=== PATIENT | female | born 1975 | race Caucasian/White ===

== ENCOUNTER 2020-03-21 09:13 | Emergency (ER) | payer SELFPAY ==
--- NOTE | 2020-03-21 09:57 | RADIOLOGY REPORT (SQ) ---
EXAM DESCRIPTION: CHEST SINGLE VIEW IMAGES COMPLETED DATE/TIME: 03/21/2020 9:48 am REASON FOR STUDY: cp COMPARISON: None. EXAM PARAMETERS: NUMBER OF VIEWS: One view. TECHNIQUE: Single frontal radiographic view of the chest acquired. RADIATION DOSE: NA LIMITATIONS: None. FINDINGS: LUNGS AND PLEURA: No opacities, masses or pneumothorax. No pleural effusion. MEDIASTINUM AND HILAR STRUCTURES: No masses. Contour normal. HEART AND VASCULAR STRUCTURES: Heart normal in size. Normal vasculature. BONES: No acute findings. HARDWARE: None in the chest. OTHER: No other significant finding. IMPRESSION: NO ACUTE RADIOGRAPHIC FINDING IN THE CHEST. TECHNICAL DOCUMENTATION: JOB ID: [id number] 2010 [employer]- All Rights Reserved Reading location - IP/workstation name: [email or web address]
[2020-03-21 10:14] LABS: ABSOLUTE EOSINOPHILS # (AUTO) 0.1 10^3/uL (0.0-0.6); ABSOLUTE LYMPHOCYTES (AUTO) 1.2 10^3/uL (0.5-4.7); ABSOLUTE MONOCYTES (AUTO) 0.4 10^3/uL (0.1-1.4); ABSOLUTE NEUT (AUTO) 9.1 10^3/uL (1.7-8.2); BASOPHILS % (AUTO) 0.2 % (0-2); HEMATOCRIT 41.6 % (36.0-47.0); HEMOGLOBIN 14.9 g/dL (12.0-15.5); LYMPHOCYTES % (AUTO) 10.8 % (13-45); MEAN CORPUSCULAR HEMOGLOBIN 33.2 pg (27.0-33.4); MEAN CORPUSCULAR HGB CONC 35.9 g/dL (32.0-36.0); MEAN CORPUSCULAR VOLUME 92 fl (80-97); MONOCYTES % (AUTO) 3.3 % (3-13); PLATELET COUNT 169 10^3/uL (150-450); RED CELL DISTRIBUTION WIDTH 12.6 % (11.5-14.0); SEGMENTED NEUTROPHILS % (AUTO) 84.7 % (42-78); TOTAL CELLS COUNTED % (AUTO) 100 %; WHITE BLOOD COUNT 10.8 10^3/uL (4.0-10.5)
--- NOTE | 2020-03-21 10:23 | ER Document Report ---
ED Cardiac - General Stated Complaint: CHEST PAIN Time Seen by Provider: 03/21/20 09:22 Notes: CHIEF COMPLAINT: Chest pain HPI: 44-year-old mildly obese female who smokes presenting to the emergency department for evaluation of chest pain under the left breast with some radiation into the left shoulder and arm today that started around 730. Patient describes it as a squeezing pressure sensation as if someone was sitting on her chest. Mild shortness of breath. No abdominal pain nausea vomiting. Has not had prior discomfort like this. No radiation into the neck or back. Patient did call EMS who gave the patient aspirin and also nitroglycerin spray and then put her on a nitroglycerin drip. Patient states all of her pain is gone at this time. Unknown family history per the patient ROS: See HPI - all other systems were reviewed and are otherwise negative Constitutional: no fever Eyes: no drainage, no blurred vision ENT: no runny nose, no sore throat Cardiovascular: + chest pain Resp: + SOB, no cough GI: no vomiting, no diarrhea, no abdominal pain : no dysuria Integumentary: no rash Allergy: no hives Musculoskeletal: no extremity pain or swelling Neurological: no numbness/tingling, no weakness MEDICATIONS: I agree with the patient medications as charted by the RN. ALLERGIES: I agree with the allergies as charted by the RN. PAST MEDICAL HISTORY/PAST SURGICAL HISTORY: Reviewed and agree as charted by RN. SOCIAL HISTORY: Reviewed and agree as charted by RN. FAMILY HISTORY: No significant familial comorbid conditions directly related to patient complaint EXAM: Reviewed vital signs as charted by RN. CONSTITUTIONAL: Alert and oriented and responds appropriately to questions. Well-appearing; well-nourished HEAD: Normocephalic; atraumatic EYES: PERRL; Conjunctivae clear, sclerae non-icteric ENT: normal nose; no rhinorrhea; moist mucous membranes; pharynx without lesions noted, no uvula edema or deviation, no tonsillar hypertrophy, phonation normal NECK: Supple without meningismus; non-tender; no cervical lymphadenopathy, no masses CARD: RRR; no murmurs, no clicks, no rubs, no gallops; symmetric distal pulses RESP: Normal chest excursion without splinting or tachypnea; breath sounds clear and equal bilaterally; no wheezes, no rhonchi, no rales, pulse oximetry 98% on room air not hypoxic ABD/GI: Mildly obese, normal bowel sounds; non-distended; soft, non-tender, no rebound, no guarding; no palpable organomegaly or masses. BACK: The back appears normal and is non-tender to palpation, there is no CVA tenderness EXT: Normal ROM in all joints; non-tender to palpation; no cyanosis, no effusions, no edema SKIN: Normal color for age and race; warm; dry; good turgor; no acute lesions noted NEURO: Moves all extremities equally; Motor and sensory function intact PSYCH: The patient's mood and manner are appropriate. Grooming and personal hygiene are appropriate. MDM: 44-year-old female mildly obese, smoker, no other known medical history presenting for evaluation of chest pain with some shortness of breath today. Was given aspirin and nitroglycerin by EMS with resolution of pain. Does not know whether the aspirin or the nitroglycerin made the pain go away. Patient currently pain-free. Her EKG is normal sinus rhythm with a ventricular rate of 72 VA 136 QT 400 QTC 438, normal EKG without other ectopy noted. Interpreted by emergency department physicians. Will obtain screening cardiac labs on the castillo ent, chest x-ray is without acute findings. If for set of cardiac labs are normal anticipate holding patient for second set. Patient nitroglycerin drip was turned off on my arrival. We will observe the patient for recurrent pain or issues - Related Data Allergies/Adverse Reactions: codeine Allergy (Verified 03/21/20 09:45) morphine Allergy (Verified 03/21/20 09:45) Penicillins Allergy (Verified 03/21/20 09:45) Past Medical History - Social History Smoking Status: Current Every Day Smoker Family History: Reviewed & Not Pertinent Physical Exam - Vital signs Vitals: Temp Pulse Resp BP Pulse Ox 97.8 F 87 18 160/100 H 98 03/21/20 09:14 03/21/20 09:14 03/21/20 09:14 03/21/20 09:14 03/21/20 09:14 Course - Re-evaluation Re-evalutation: 03/21/20 11:02 Notified by nursing the patient's troponin was elevated. discussed with Dr. Bynum who evaluated the patient. Will restart nitroglycerin drip. Give beta-neptali give Lovenox give Plavix. Have called [facility] transfer line awaiting callback from their barrel raiser helper. Have discussed this with the patient. I spoke with Dr. Sorto the barrel raiser helper on-call at [facility], we discussed the case and he recommends transfer of the patient for cardiac catheterization 03/21/20 11:[address] Macario Dey, [facility]. He accepts the patient to a floor bed and then they will take the patient to the Formula Room Worker. I discussed this with the p atient she will be n.p.o. - Vital Signs Vital signs: Temp Pulse Resp BP Pulse Ox 97.8 F 87 13 160/86 H 98 03/21/20 09:14 03/21/20 09:14 03/21/20 11:03 03/21/20 11:03 03/21/20 11:03 - Laboratory Result Diagrams: 03/21/20 09:51 03/21/20 09:51 Laboratory results interpreted by me: 03/21/20 03/21/20 09:51 09:51 WBC 10.8 H Lymph % (Auto) 10.8 L Absolute Neuts (auto) 9.1 H Seg Neutrophils % 84.7 H Creatinine 0.48 L Glucose 143 H Critical Care Note - Critical Care Note Total time excluding time spent on procedures (mins): 35 - Nstemi, heparin/NTG drips, multiple consultation calls Discharge - Discharge Clinical Impression: NSTEMI (non-ST elevated myocardial infarction) Condition: Stable Disposition: [facility]
[2020-03-21 10:28] LABS: ALBUMIN 4.2 g/dL (3.5-5.0); ALKALINE PHOSPHATASE 91 U/L (38-126); ANION GAP 9 (5-19); ASPARTATE AMINO TRANSFERASE 34 U/L (14-36); BILIRUBIN,DIRECT 0.2 mg/dL (0.0-0.4); BILIRUBIN,TOTAL 0.9 mg/dL (0.2-1.3); BLOOD UREA NITROGEN 20 mg/dL (7-20); CALCIUM 9.4 mg/dL (8.4-10.2); CARBON DIOXIDE 24 mmol/L (22-30); CHLORIDE 107 mmol/L (98-107); GLUCOSE 143 mg/dL (75-110); POTASSIUM 3.7 mmol/L (3.6-5.0); TOTAL PROTEIN 6.9 g/dL (6.3-8.2)
[2020-03-21] MEDS ORDERED: NITROGLYCERIN/D5W 50 MG/250 ML RTUINJ IV PRN (10:53)
[2020-03-21] MEDS ORDERED: CLOPIDOGREL BISULFATE 75 MG TABLET PO ONE (10:59)
[2020-03-21] MEDS ORDERED: ENOXAPARIN SODIUM INJ 100 MG/1 ML DISP.SYRIN SUBCUT SCH (11:00)
[2020-03-21] MEDS ORDERED: METOPROLOL TARTRATE 25 MG TABLET PO SCH (11:00)
[2020-03-21 11:12] LABS: PROTHROMBIN TIME 13.4 SEC (11.4-15.4)
--- NOTE | 2020-03-21 11:12 | ER Document Report ---
Doctor's Note Notes: 03/21/20 11:07 This is a 44-year-old female presenting by EMS with chest pain who I was asked to evaluate along with midlevel provider. Reports sudden onset of severe discomfort and right parasternal area radiating into the neck and shoulder while she was cooking in her kitchen this morning. She was somewhat short of breath with this. No nausea or vomiting. No syncope or presyncope. Patient has not seen a doctor in years and takes no medications. She is a cigarette smoker. She reports allergies to codeine, morphine and penicillin. No prior surgery. Patient has been told that she has had some transient elevation of blood pressure in the past but has never been diagnosed with hypertension. She is not diabetic and has no history of hyperlipidemia. There is no prior history of thromboembolic disease. Family history is unknown to this patient. Patient was started on IV nitroglycerin and given aspirin by EMS. She was pain- free on arrival here and is remained pain-free. She is hemodynamically stable. Normal sinus rhythm on monitor. Her chest is clear cardiac rhythm is regular at murmur gallop or rub she has no jugular venous distention and no peripheral edema. Her abdomen is soft and nontender she is awake alert and oriented appearing in no distress. Twelve-lead EKG shows normal sinus rhythm with no acute ST/T wave changes. Troponin is, however, elevated about 1.3. Patient appears to have acute coronary syndrome with acute non-STEMI. Findings were discussed with supervisory aide on-call, Dr. Sorto. We agreed that patient will remain on IV nitroglycerin and we are going to give her Lovenox and Plavix as well as beta-neptali. She is going to be transferred to [facility] for cardiac catheterization.
[2020-03-21 11:13] LABS: PARTIAL THROMBOPLASTIN TIME 24.5 SEC (23.5-35.8)
--- NOTE | 2020-03-21 12:43 | EKG REPORT ---
SEVERITY:- BORDERLINE ECG - SINUS RHYTHM NONSPECIFIC ST-T CHANGES- INFERIOR LEADS : Confirmed by: Justice Howell MD 21-Mar-2020 12:42:01
[2020-03-21 14:10] VITALS: BP 155/92
== END 2020-03-21 13:09 | disposition short-term general hospital (02) ==
LOC: ER 09:13
DX: I21.4 Non-ST elevation (NSTEMI) myocardial infarction (principal); R07.9 Chest pain, unspecified; F17.210 Nicotine dependence, cigarettes, uncomplicated; Z88.6 Allergy status to analgesic agent; Z88.0 Allergy status to penicillin
CPT/HCPCS: 93005; 99285; 96372; 96365; 36415; 85025; 85610; 85730; 80053; 84484; 71045; 93010; J3490; J1650